=== PATIENT | female | born 1965 | race Caucasian/White ===

== ENCOUNTER → 2018-04-10 | Outpatient (CLI) | payer OTHER ==
[~2018-04-10] MED LIST: NONE PER PT
== END | disposition home or self-care (01) ==
LOC: STAR 13:10
PROVIDERS: ATTEND Specialist
DX: Z02.9 Encounter for administrative examinations, unspecified (principal)

== ENCOUNTER 2018-04-24 05:47 | Day surgery (SDC) | payer OTHER ==
[~2018-04-24] VITALS: Ht 172.7 cm; Wt 71.8 kg
[2018-04-24] MEDS ORDERED: LACTATED RINGERS 1,000 ML IV SCH (06:22)
[2018-04-24 06:50] LABS: HCG UR SG 1.022 (1.003-1.030)
[2018-04-24] MEDS ORDERED: ACETAMINOPHEN 500 MG TABLET PO ONE (07:00)
[2018-04-24] MEDS ORDERED: ONDANSETRON ODT 8 MG PO ONE (07:00)
[2018-04-24] MEDS ORDERED: VANCOMYCIN 500 MG ONE (07:03)
[2018-04-24] MEDS ORDERED: GENTAMICIN 80 MG/2 ML ONE (07:03)
[2018-04-24] MEDS ORDERED: BUPIVACAINE 0.25% ONE (07:03)
[2018-04-24] MEDS ORDERED: EPINEPHRINE 1 MG/ML, 1ML ONE (07:03)
[2018-04-24] MEDS ORDERED: FLUORESCEIN SODIUM 500 MG/5 ML ONE (07:03)
[2018-04-24] MEDS ORDERED: FENTANYL PF 100 MCG/2ML ONE (07:18)
[2018-04-24] MEDS ORDERED: MIDAZOLAM 1 MG/ML, 2ML ONE (07:18)
[2018-04-24] MEDS ORDERED: LIDOCAINE-MPF 2% ,5ML ONE (07:19)
[2018-04-24] MEDS ORDERED: PROPOFOL 10 MG/ML, 20ML ONE (07:19)
[2018-04-24] MEDS ORDERED: MEPERIDINE/PF 25MG/0.5ML IVPush PRN (07:30)
[2018-04-24] MEDS ORDERED: ALBUTEROL SULFATE 2.5 MG/3 ML NPPB PRN (07:30)
[2018-04-24] MEDS ORDERED: hydrALAzine 20 MG/ML, 1ML IV PRN (07:30)
[2018-04-24] MEDS ORDERED: MIDAZOLAM 1 MG/ML, 2ML IV PRN (07:30)
[2018-04-24] MEDS ORDERED: FENTANYL PF 100 MCG/2ML IV PRN (07:30)
[2018-04-24] MEDS ORDERED: LABETALOL 5MG/ML, 20ML IV PRN (07:30)
[2018-04-24] MEDS ORDERED: OXYcodone 5 MG/5 ML ORAL.SOL UDC PO PRN (07:30)
[2018-04-24] MEDS ORDERED: PROCHLORPERAZINE 5 MG/ML, 2ML IV PRN (07:30)
[2018-04-24] MEDS ORDERED: THROMBIN 5,000 UNIT VIAL TP ONE (07:54)
[2018-04-24] MEDS ORDERED: OXYcodone 5 MG/5 ML ORAL.SOL UDC ONE (08:19)
[2018-04-24] MEDS ORDERED: SUCCINYLCHOLINE 20 MG/ML, 10ML ONE (15:40)
[2018-04-24] MEDS ORDERED: CEFAZOLIN 1,000 MG ONE (15:40)
== END 2018-04-24 12:30 | disposition home or self-care (01) ==
LOC: OUT 05:47
PROVIDERS: ATTEND Specialist
DX: N39.3 Stress incontinence (female) (male) (principal); F32.9 Major depressive disorder, single episode, unspecified; F41.9 Anxiety disorder, unspecified; Z85.3 Personal history of malignant neoplasm of breast; Z72.89 Other problems related to lifestyle
CPT/HCPCS: 57288; 81025; C1771; J0171; J0330; J0690; J1580; J2250; J2704; J3010; J3370; J3490; J7120; Q0162